=== PATIENT | male | born 1955 | race Caucasian/White ===

== ENCOUNTER 2017-02-27 20:59 | Emergency (ER) | payer BC ==
[2017-02-27 21:07] VITALS: BP 124/81; PULSE 92; RESP 18; TEMP 98.4
[2017-02-27] MEDS ORDERED: DEXAMETHASONE 4 MG TAB PO STA (22:22)
--- NOTE | 2017-02-27 22:43 | ED ---
General Adult HPI - General Chief complaint: Extremity Problem,Nontraumatic Stated complaint: [facility]/Rt arm/shoulder Time Seen by Provider: 02/27/17 21:29 Source: patient, family, RN notes reviewed, old records reviewed Mode of arrival: ambulatory Limitations: no limitations - History of Present Illness Initial comments: Chief complaint and history of present illness a 61-year-old male here with his . They're seen at another facility earlier in the day and sent down for evaluation. The patient started having pain and discomfort yesterday after work. Patient has a history of rheumatoid arthritis. 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 Today when he went to work he had another job that called for repetition but the pain became too much. He presented to the emergency room with a swollen tender wrist. X-rays were done there and CD of the results were sent here. Showing osteoarthritis. With chondrocalcinosis. Patient was afebrile at home and at the facility and here. He had labs done which showed a white count of 14 ,000 a CRP of only 5. His uric acid was normal at 3.5. - Related Data Home Medications Medication Instructions Recorded Confirmed Aspirin [Adult Low Dose Aspirin EC] 81 mg PO DAILY 02/27/17 02/27/17 Ibuprofen [Motrin] 400 mg PO BID PRN 02/27/17 02/27/17 Magnesium 200 mg PO DAILY 02/27/17 02/27/17 Multivitamins, Thera [Multivitamin 1 tab PO DAILY 02/27/17 02/27/17 (formulary)] Potassium 99 mg PO DAILY 02/27/17 02/27/17 Previous Rx's Medication Instructions Recorded Dexamethasone 0.75 mg PO DAILY #12 tablet 02/27/17 Diclofenac Sodium [Voltaren] 50 mg PO BID #20 tablet. 02/27/17 Allergies Allergy/AdvReac Type Severity Reaction Status Date / Time No Known Allergies Allergy Verified 02/27/17 22:08 Review of Systems ROS Statement: Those systems with pertinent positive or pertinent negative responses have been documented in the HPI. Review of systems no headache or visual acuity changes no chest pain or shortness of breath no abdominal pain no GI/ problems. He does have history of arthritis. His right wrist significantly swollen after a day of repetition with parts he moved over 1400 times. All systems were reviewed. Past medical problems significant for arthritis, RA, family history mother had breast cancer need niece had breast cancer. The patient's surgeries include cardiac cath that was normal without the need for a stent. Patient also has a history of COPD. ALLERGIES none he does smoke strongly encouraged stop drinks alcohol socially. ROS Other: All systems not noted in ROS Statement are negative. Past Medical History Past Medical History: No Reported History History of Any Multi-Drug Resistant Organisms: None Reported Past Surgical History: No Surgical Hx Reported Past Psychological History: No Psychological Hx Reported Smoking Status: Current every day smoker Past Alcohol Use History: Occasional Past Drug Use History: None Reported General Exam - General Exam Comments Initial Comments: General: The patient is awake and alert, patient has pain and swelling to his right wrist not read. Vital signs show temperature 98.4 pulse 92 respiratory rate 18 pulse ox 97% room air blood pressure 124/81 Eye: Pupils are equal, , extra-ocular movements are intact; there is normal conjunctiva bilaterally. No signs of icterus. Neck: The neck is supple, Cardiovascular: No complaint chest pain or shortness of breath this time. No palpitations. Respiratory: No shortness of breath, no wheezing. Gastrointestinal: No complaint of abdominal pain. Back: No complaint of back pain. Musculoskeletal: Patient has pain and swelling to his right wrist. No significant redness. Due to keeping his hand down and dependent plus a swelling at the wrist does cause some increased swelling in the hand. Patient was advised to keep the hand elevated above his elbow gently open and close his hand. No open wounds are noted. No cellulitis or lymphangitis or lymphadenitis appreciated. Neurological: No neuro deficits Skin: Skin is warm and dry around the wrist. Limitations: no limitations Course Vital Signs 02/27/17 21:04 Temperature 98.4 F Pulse Rate 92 Respiratory 18 Rate Blood Pressure 124/81 O2 Sat by Pulse 97 Oximetry Medical Decision Making - Medical Decision Making I reviewed the x-rays and the radiologist who reviewed the x-rays report includes no acute fracture or dislocation. Mild osteoarthritis of the RCA joint. Mild to moderate osteoarthritis along the lateral carpal bones. Chondrocalcinosis at the RCA joint. No foreign body. No soft tissue swelling. examination here in emergency room there is soft tissue swelling. His med developed over the past several hours since the x-ray was taken. I discussed the case with on-call orthopedic surgeon Dr. Boyer, he reviewed the x-rays on his computer. Labs performed at the other facility were discussed including white count , 14,000, CRP was 5 and uric acid 3.5. There is nothing fluctuant in the joint. Orthopedic surgeon recommends Voltaren and steroids for inflammation. He'll also be referred to Dr. Blake rios, hand surgeon. At home the patient be continued on Voltaren and Decadron dose pack. Told to ice elevate. Off work until improved Disposition Clinical Impression: Osteoarthritis of right wrist Disposition: HOME SELF-CARE Condition: Stable Instructions: Osteoarthritis (ED) Additional Instructions: Ice, elevate wrist. Take Voltaren 50 mg twice a day. Take Decadron dose pack as directed. Follow-up with hand surgeon Dr. Blake llamas Prescriptions: Dexamethasone 0.75 mg PO DAILY #12 tablet Diclofenac Sodium [Voltaren] 50 mg PO BID #20 tablet.dr Referrals: Nile Fleming MD [Primary Care Provider] - 1-2 days Time of Disposition: 23:03
[2017-02-27] MEDS ORDERED: HYDROmorphone 1 MG/ML 1 ML SYRINGE IM STA (22:48)
[2017-02-27] MEDS: ETODOLAC 400 MG TAB PO SCH ×2 (23:20→23:24)
== END 2017-02-28 | disposition home or self-care (01) ==
LOC: EC 20:59
DX: M19.031 Primary osteoarthritis, right wrist (principal); F17.200 Nicotine dependence, unspecified, uncomplicated; Z79.82 Long term (current) use of aspirin; Z79.899 Other long term (current) drug therapy
CPT/HCPCS: 99284; 96372; J8540; J1170